=== PATIENT | female | born 1940 | race Caucasian/White ===

== ENCOUNTER → 2024-01-08 06:58 | Outpatient (REF) | payer MEDICARE, SELFPAY ==
[2024-01-08 07:43] LABS: % Basophils 0.5 % (0-2); % Eosinophils 1.2 % (0-6); % Immature Granulocytes 0.4 % (0-0.5); % Lymphocytes 28.7 % (20.5-51.1); % Monocytes 6.7 % (1.7-9.3); % Neutrophils 62.5 % (42.2-75.2); Absolute Eosinophils 0.1 10^3/uL (0-0.7); Absolute Lymphocytes 2.2 10^3/uL (1.2-3.4); Absolute Monocytes 0.5 10^3/uL (0.1-0.6); Absolute Neutrophils 4.7 10^3/uL (1.4-6.5); Hematocrit 38.7 % (37.0-47.0); Hemoglobin 12.6 g/dL (12.0-16.0); Mean Corp Hgb Conc. 32.6 g/dL (33.0-37.0); Mean Corpuscular Hgb 29.4 pg (27.0-31.0); Mean Corpuscular Volume 90.4 fL (81.0-99.0); Mean Platelet Volume 8.5 fL (7.4-10.4); Nucleated Red Blood Cells % 0 %; Platelet Count 382 10^3/uL (130-400); Red Blood Cell Count 4.28 10^6/uL (4.20-5.40); Red Cell Dist. Width 13.4 % (11.5-14.5); White Blood Cell Count 7.5 10^3/uL (4.8-10.8)
[2024-01-08 07:55] LABS: ALT (SGPT) 14 U/L (0-35); AST (SGOT) 20 U/L (14-36); Albumin 4.3 g/dl (3.5-5.0); Alkaline Phosphatase 86 U/L (38-126); Blood Urea Nitrogen 26 mg/dl (7-17); Calcium 11.1 mg/dl (8.4-10.2); Carbon Dioxide 29 mmol/L (22-30); Chloride 101 mmol/L (98-107); Glucose 196 mg/dl (70-99); Potassium 4.5 mmol/L (3.5-5.1); Sodium 138 mmol/L (135-145); Total Bilirubin 0.5 mg/dl (0.2-1.3); Total Protein 7.1 g/dl (6.3-8.2); eGFR 44.91
[2024-01-08 08:37] LABS: Microalbumin, Random Urine <0.6 mg/dl (0.6-1.7)
[2024-01-08 09:27] LABS: Glycohemoglobin (HgbA1c) 8.8 % (4.0-5.6)
== END ==
LOC: REG 06:58
PROVIDERS: ATTENDING PHYSICIAN Internal Medicine
DX: E11.9 Type 2 diabetes mellitus without complications (principal); I10 Essential (primary) hypertension; E83.52 Hypercalcemia; D64.9 Anemia, unspecified
CPT/HCPCS: 36415; 80053; 82043; 82570; 83036; 85025

== ENCOUNTER → 2024-07-09 08:53 | Outpatient (REF) | payer MEDICARE, SELFPAY ==
[2024-07-09 10:05] LABS: % Basophils 0.6 % (0-2); % Eosinophils 1.2 % (0-6); % Immature Granulocytes 0.5 % (0-0.5); % Lymphocytes 18.7 % (20.5-51.1); % Monocytes 6.7 % (1.7-9.3); % Neutrophils 72.3 % (42.2-75.2); Absolute Eosinophils 0.1 10^3/uL (0-0.7); Absolute Lymphocytes 1.2 10^3/uL (1.2-3.4); Absolute Monocytes 0.4 10^3/uL (0.1-0.6); Absolute Neutrophils 4.7 10^3/uL (1.4-6.5); Hematocrit 35.1 % (37.0-47.0); Hemoglobin 11.5 g/dL (12.0-16.0); Mean Corp Hgb Conc. 32.8 g/dL (33.0-37.0); Mean Corpuscular Hgb 29.4 pg (27.0-31.0); Mean Corpuscular Volume 89.8 fL (81.0-99.0); Mean Platelet Volume 9.7 fL (7.4-10.4); Nucleated Red Blood Cells % 0 %; Platelet Count 302 10^3/uL (130-400); Red Blood Cell Count 3.91 10^6/uL (4.20-5.40); Red Cell Dist. Width 12.7 % (11.5-14.5); Reticulocyte Count 1.6 % (0.4-2.8); White Blood Cell Count 6.5 10^3/uL (4.8-10.8)
[2024-07-09 10:39] LABS: Intact PTH 78.1 pg/ml (13.6-85.8)
[2024-07-09 10:40] LABS: ALT (SGPT) 15 U/L (0-35); AST (SGOT) 24 U/L (14-36); Albumin 4.3 g/dl (3.5-5.0); Alkaline Phosphatase 92 U/L (38-126); Blood Urea Nitrogen 21 mg/dl (7-17); Calcium 10.1 mg/dl (8.4-10.2); Carbon Dioxide 23 mmol/L (22-30); Chloride 104 mmol/L (98-107); Glucose 168 mg/dl (70-99); Potassium 4.6 mmol/L (3.5-5.1); Sodium 142 mmol/L (135-145); Total Bilirubin 0.5 mg/dl (0.2-1.3)
[2024-07-09 12:49] LABS: Microalbumin, Random Urine <0.6 mg/dl (0.6-1.7)
[2024-07-09 12:58] LABS: Glycohemoglobin (HgbA1c) 7.8 % (4.0-5.6)
== END ==
LOC: REG 08:53
PROVIDERS: ATTENDING PHYSICIAN Internal Medicine
DX: E11.65 Type 2 diabetes mellitus with hyperglycemia (principal); I10 Essential (primary) hypertension; E83.52 Hypercalcemia; D64.9 Anemia, unspecified; R05.3 Chronic cough; Z00.00 Encounter for general adult medical examination without abnormal findings
CPT/HCPCS: 36415; 80053; 82043; 82570; 83036; 83970; 85025; 85045

== ENCOUNTER → 2024-12-23 08:57 | Outpatient (REF) | payer MEDICARE, SELFPAY ==
[2024-12-23 09:47] LABS: % Basophils 0.7 % (0-2); % Eosinophils 1.1 % (0-6); % Immature Granulocytes 0.4 % (0-0.5); % Lymphocytes 18.5 % (20.5-51.1); % Monocytes 6.2 % (1.7-9.3); % Neutrophils 73.1 % (42.2-75.2); Absolute Basophils 0.1 10^3/uL (0-0.2); Absolute Eosinophils 0.1 10^3/uL (0-0.7); Absolute Lymphocytes 1.3 10^3/uL (1.2-3.4); Absolute Monocytes 0.4 10^3/uL (0.1-0.6); Absolute Neutrophils 5.2 10^3/uL (1.4-6.5); Hematocrit 30.9 % (37.0-47.0); Hemoglobin 9.6 g/dL (12.0-16.0); Mean Corp Hgb Conc. 31.1 g/dL (33.0-37.0); Mean Corpuscular Hgb 27.3 pg (27.0-31.0); Mean Corpuscular Volume 87.8 fL (81.0-99.0); Mean Platelet Volume 8.2 fL (7.4-10.4); Nucleated Red Blood Cells % 0 %; Platelet Count 403 10^3/uL (130-400); Red Blood Cell Count 3.52 10^6/uL (4.20-5.40); White Blood Cell Count 7.1 10^3/uL (4.8-10.8)
[2024-12-23 10:35] LABS: ALT (SGPT) 16 U/L (0-35); AST (SGOT) 22 U/L (14-36); Albumin 4.5 g/dl (3.5-5.0); Alkaline Phosphatase 97 U/L (38-126); Blood Urea Nitrogen 21 mg/dl (7-17); Calcium 9.9 mg/dl (8.4-10.2); Carbon Dioxide 21 mmol/L (22-30); Chloride 106 mmol/L (98-107); Glucose 191 mg/dl (70-99); Potassium 4.6 mmol/L (3.5-5.1); Sodium 139 mmol/L (135-145); Total Bilirubin 0.6 mg/dl (0.2-1.3); Total Protein 6.9 g/dl (6.3-8.2); eGFR 49.55
== END ==
LOC: REG 08:57
PROVIDERS: ATTENDING PHYSICIAN Internal Medicine
DX: K83.09 Other cholangitis (principal); K80.50 Calculus of bile duct without cholangitis or cholecystitis without obstruction; I48.0 Paroxysmal atrial fibrillation; E11.65 Type 2 diabetes mellitus with hyperglycemia; I10 Essential (primary) hypertension; E83.52 Hypercalcemia; D64.9 Anemia, unspecified
CPT/HCPCS: 36415; 80053; 85025; 85045

== ENCOUNTER → 2025-01-27 08:58 | Outpatient (REF) | payer MEDICARE, SELFPAY ==
[2025-01-27 10:17] LABS: % Basophils 0.5 % (0-2); % Eosinophils 1.6 % (0-6); % Immature Granulocytes 0.5 % (0-0.5); % Lymphocytes 18.8 % (20.5-51.1); % Monocytes 6.8 % (1.7-9.3); % Neutrophils 71.8 % (42.2-75.2); Absolute Eosinophils 0.1 10^3/uL (0-0.7); Absolute Lymphocytes 1.1 10^3/uL (1.2-3.4); Absolute Monocytes 0.4 10^3/uL (0.1-0.6); Absolute Neutrophils 4.1 10^3/uL (1.4-6.5); Hematocrit 31.3 % (37.0-47.0); Hemoglobin 9.7 g/dL (12.0-16.0); Mean Corpuscular Hgb 27.4 pg (27.0-31.0); Mean Corpuscular Volume 88.4 fL (81.0-99.0); Mean Platelet Volume 8.4 fL (7.4-10.4); Nucleated Red Blood Cells % 0 %; Platelet Count 396 10^3/uL (130-400); Red Blood Cell Count 3.54 10^6/uL (4.20-5.40); Red Cell Dist. Width 16.6 % (11.5-14.5); Reticulocyte Count 2.8 % (0.4-2.8); White Blood Cell Count 5.7 10^3/uL (4.8-10.8)
[2025-01-27 10:47] LABS: Iron 51 ug/dl (37-170)
[2025-01-27 11:00] LABS: Glycohemoglobin (HgbA1c) 6.4 % (4.0-5.6)
[2025-01-27 11:20] LABS: Ferritin 13.3 ng/ml (11.1-264.0)
[2025-01-27 11:59] LABS: Folate > 20.0 ng/ml (2.76-20); Vitamin B12 195 pg/ml (239-931)
== END ==
LOC: REG 08:58
PROVIDERS: ATTENDING PHYSICIAN Internal Medicine
DX: D64.9 Anemia, unspecified (principal); E11.65 Type 2 diabetes mellitus with hyperglycemia; Z79.899 Other long term (current) drug therapy
CPT/HCPCS: 36415; 82607; 82728; 82746; 83036; 83540; 85025; 85045

== ENCOUNTER → 2025-03-26 07:43 | Outpatient (REF) | payer MEDICARE, SELFPAY ==
[2025-03-26 08:52] LABS: ALT (SGPT) 15 U/L (0-35); AST (SGOT) 21 U/L (14-36); Albumin 4.6 g/dl (3.5-5.0); Alkaline Phosphatase 100 U/L (38-126); Blood Urea Nitrogen 25 mg/dl (7-17); Calcium 10.4 mg/dl (8.4-10.2); Carbon Dioxide 27 mmol/L (22-30); Chloride 106 mmol/L (98-107); Glucose 126 mg/dl (70-99); HDL Cholesterol 82 mg/dl; LDL Cholesterol, Calculated 86 mg/dl; Potassium 5.1 mmol/L (3.5-5.1); Sodium 140 mmol/L (135-145); Total Bilirubin 0.3 mg/dl (0.2-1.3); Total Cholesterol 185 mg/dl (50-199); Total Protein 7.3 g/dl (6.3-8.2); Triglyceride 87 mg/dl (10-149); Very Low Density Lipoprotein 17 mg/dl (0-30); eGFR 49.55
[2025-03-26 10:09] LABS: Glycohemoglobin (HgbA1c) 6.2 % (4.0-5.6)
[2025-03-26 10:13] LABS: Urine Albumin Negative (Neg - Trace); Urine Bilirubin Negative (Negative); Urine Character Clear (Clear); Urine Color Yellow; Urine Glucose 3+ (Negative); Urine Ketone Negative (Negative); Urine Leukocyte 3+ (Negative); Urine Nitrite Negative (Negative); Urine Occult Blood 1+ (Negative); Urine Urobilinogen Negative (Neg - 1+)
[2025-03-26 10:25] LABS: Urine Bacteria Few (Negative); Urine Red Blood Cell 0-2 /HPF (0-2); Urine White Cell 40-50 /HPF (0-5)
[2025-03-26 10:44] LABS: Microalbumin, Random Urine 1.5 mg/dl (0.6-1.7); Microalbumin/creatinine Ratio 32.9 mg/g
== END ==
LOC: REG 07:43
PROVIDERS: ATTENDING PHYSICIAN Internal Medicine
DX: E11.9 Type 2 diabetes mellitus without complications (principal); I10 Essential (primary) hypertension; E83.52 Hypercalcemia
CPT/HCPCS: 36415; 80053; 80061; 81003; 81015; 82043; 82570; 83036

== ENCOUNTER 2025-04-07 06:10 | Day surgery (SDC) | payer MEDICARE, SELFPAY ==
--- NOTE | 2025-04-01 08:26 | PTCARENOTE ---
Noted Hgb 9.7 on 01/27/2025, Dr. Craven notified, no updated labs required at this time.
--- NOTE | 2025-04-01 15:20 | PTCARENOTE ---
Abnormal Hemoglobin on 01/[address] Walker aware. No intervention needed.
[2025-04-07] VITALS (16 sets, daily range): BP systolic 62–141; BP diastolic 45–58; BMI 25.6
[2025-04-07 06:29] LABS: Glucose - Point of Care 161 mg/dl (70-99)
[2025-04-07] MEDS: NORMOSOL-R/PLASMALYTE-A 1000 IV (06:47)
[2025-04-07] MEDS: TYLENOL 1000 MG PO (06:47)
--- NOTE | 2025-04-07 06:51 | HP.FOC2 ---
Focused History & Physical
Chief Complaint
HPI:
Chief Complaint: History choledocholithiasis/gallstones
HPI / Indication for Planned Procedure: 84-year-old female with recent history of biliary sepsis from choledocholithiasis status post ERCP sphincterotomy and stone extraction in October 2024. She presents today for cholecystectomy in the setting of
previous history of gallstone mediated complications.
Relevant Past Medical History: Other (Hypertension, A-fib, type 2 diabetes)
Relevant Social History: Negative
Relevant Family History: Negative
Relevant Past Surgical History: Positive for (Appendectomy, tubal ligation, colostomy followed by reversal, incisional hernia repair, breast biopsy, bladder repair, cataracts, tonsils, thyroid)
Review of Systems
Review of Pertinent Systems: All Systems Negative
Medication
See Medication form for detailed medications: Yes
Medication List (including Herbals & OTC):
diltiazem HCl 240 mg capsule,24 hr,extended release 240 mg PO DAILY 12/28/15
spironolactone 25 mg tablet 25 mg PO DAILY #1 tab 09/09/22
apixaban 5 mg tablet (Eliquis) 5 mg PO BID 04/02/25
docusate sodium 100 mg capsule (Colace) 100 mg PO BID 04/02/25
ferrous sulfate 325 mg (65 mg iron) tablet (iron) 325 mg PO DAILY 04/02/25
glipizide 2.5 mg tablet 2.5 mg PO QPM 04/02/25
glipizide 5 mg tablet 5 mg PO DAILY 04/02/25
hydrochlorothiazide 25 mg tablet 25 mg PO DAILY 04/02/25
metformin 500 mg tablet,extended release 24 hr 1,000 mg PO DAILY 04/02/25
metformin 500 mg tablet,extended release 24 hr 500 mg PO QPM 04/02/25
psyllium husk 0.4 gram capsule 0.4 g PO QPM 04/02/25
psyllium husk 0.4 gram capsule 0.8 g PO DAILY 04/02/25
Medications Reviewed: Yes
Allergies and Reactions
Patient has Allergies: Yes
Noted Allergies and Reactions:
Allergy/AdvReac Type Severity Reaction Status Date / Time
AMRIAN Inhibitors Allergy Itching Verified 04/07/25 06:16
Beta-Blockers Allergy ITCHY Verified 04/07/25 06:16
(Beta-Adrenergic Bloc THROAT,
COUGH
lisinopril Allergy itchy Verified 04/07/25 06:16
throat,
cough
valsartan (From Diovan) Allergy itchy Verified 04/07/25 06:16
throat,
cough
Pertinent Physical Exam
All Other Systems: Negative
Head/Neck: Normal
Lungs: Normal
Heart: Normal
Abdomen: Other (Multiple surgical scars)
Extremities: Normal
Neurological: Normal
Diagnosis / Assessment
84-year-old female presenting for scheduled cholecystectomy in the setting of previous history of choledocholithiasis and gallstones
Plan / Procedure
Laparoscopic cholecystectomy with intraoperative cholangiogram
Anesthesia/Sedation to be done by Anesthesia Provider: Yes
--- NOTE | 2025-04-07 06:55 | W.SUR.PREOP ---
Pre-Operative Surgical Note
-
I have examined this patient prior to the performance of the scheduled procedure.
The patient's condition is unchanged from the time of the current History and
Physical and the patient is able to undergo the scheduled procedure.
[2025-04-07 08:28] LABS: Glucose - Point of Care 235 mg/dl (70-99)
--- NOTE | 2025-04-07 08:45 | W.IMMPOSTOP ---
Addendum entered and electronically signed by Yeyo Craven MD 04/07/25 08:55:
#[id number]
Original Note:
Surgical Immed Post Op Note
-
Primary Surgeon: Yeyo Craven MD
Assisting Surgeon: Johnny Agudelo MD, PGY 1
Pre-op Diagnosis: History of choledocholithiasis, gallstones
Post-op Diagnosis: History of choledocholithiasis, gallstones
Procedure Performed: Laparoscopic cholecystectomy with intraoperative cholangiogram
Anesthesia Type: GETA +0.25% Marcaine
Specimen / Cultures: Gallbladder
Estimated Blood Loss: 8 mL
Complications: None immediate
Operative Findings: Normal intraoperative cholangiogram. Adhesions to previous hernia mesh but no right upper quadrant adhesions to affect laparoscopic cholecystectomy. Cystic duct and artery were individually identified and controlled with
hemoclips.
[2025-04-07 08:55] LABS: Glucose - Point of Care 260 mg/dl (70-99)
[2025-04-07] MEDS: NOVOLOG vial 2 UNITS SC (09:02)
[2025-04-07] MEDS: DILAUDID 0.25 MG IV ×2 (09:06→10:24)
[2025-04-07] MEDS: ZOFRAN 4 MG IV (10:22)
--- NOTE | 2025-04-07 10:26 | SUR.PHASEI ---
patient sleeps in pacu - but when awakened - yells out ' pain, I have pain!' pain initially described as 8, now 7.5/10. patient advised with sleeping - and need to monitor vs and O2 sat. When asked c/o slight nausea, Medicated now with zofran
and then dilaudid 0.25mg - now sleeps again. remains in SB to NSR - rare PVC
--- NOTE | 2025-04-07 11:20 | SUR.PHASEI ---
feels much better, nausea passed taking ice chips po
== END 2025-04-07 12:06 | disposition home or self-care (01) ==
LOC: SDS 06:10
PROVIDERS: ATTENDING PHYSICIAN Surgery
DX: K80.10 Calculus of gallbladder with chronic cholecystitis without obstruction (principal)
CPT/HCPCS: 47563; 88304; 74300; 76000; 82962; A4300

== ENCOUNTER → 2025-07-25 08:47 | Outpatient (REF) | payer MEDICARE, SELFPAY ==
[2025-07-25 09:34] LABS: Hematocrit 32.4 % (37.0-47.0); Hemoglobin 10.5 g/dL (12.0-16.0); Mean Corp Hgb Conc. 32.4 g/dL (33.0-37.0); Mean Corpuscular Volume 93.4 fL (81.0-99.0); Nucleated Red Blood Cells % 0 %; Platelet Count 418 10^3/uL (130-400); Red Cell Dist. Width 12.4 % (11.5-14.5); Reticulocyte Count 3.1 % (0.4-2.8)
[2025-07-25 09:35] LABS: Urine Character Clear (Clear)
[2025-07-25 09:50] LABS: Urine Red Blood Cell 0-2 /HPF (0-2)
[2025-07-25 10:24] LABS: ALT (SGPT) 14 U/L (0-35); AST (SGOT) 19 U/L (14-36); Albumin 4.3 g/dl (3.5-5.0); Alkaline Phosphatase 91 U/L (38-126); Blood Urea Nitrogen 18 mg/dl (7-17); Calcium 9.8 mg/dl (8.4-10.2); Carbon Dioxide 23 mmol/L (22-30); Chloride 105 mmol/L (98-107); Glucose 149 mg/dl (70-99); Potassium 4.7 mmol/L (3.5-5.1); Sodium 137 mmol/L (135-145); Total Protein 6.9 g/dl (6.3-8.2); eGFR 55.55
[2025-07-25 10:41] LABS: Glycohemoglobin (HgbA1c) 6.3 % (4.0-5.6)
== END ==
LOC: REG 08:47
PROVIDERS: ATTENDING PHYSICIAN Internal Medicine
DX: E11.9 Type 2 diabetes mellitus without complications (principal); I10 Essential (primary) hypertension; E83.52 Hypercalcemia; D64.9 Anemia, unspecified; Z12.31 Encounter for screening mammogram for malignant neoplasm of breast
CPT/HCPCS: 36415; 80053; 81003; 81015; 83036; 85025; 85045

== ENCOUNTER → 2025-08-06 07:57 | Outpatient (REF) | payer MEDICARE, SELFPAY ==
[2025-08-06 09:40] LABS: Urine Character Clear (Clear)
== END ==
LOC: REG 07:57
PROVIDERS: ATTENDING PHYSICIAN Internal Medicine
DX: R82.81 Pyuria (principal)
CPT/HCPCS: 81003